=== PATIENT | female | born 1965 | race Caucasian/White ===

== ENCOUNTER 2022-05-18 08:03 | Outpatient (CLI) | payer OTHER, SELFPAY | END 2022-05-18 08:04 | disposition home or self-care (01) | PROVIDERS: PCP Internal Medicine; Visit Provider Internal Medicine | DX: Z00.00 Encounter for general adult medical examination without abnormal findings (principal); I10 Essential (primary) hypertension; Z13.6 Encounter for screening for cardiovascular disorders | CPT/HCPCS: 80053; 80061 ==

== ENCOUNTER 2022-08-22 16:50 | Outpatient (CLI) | payer OTHER, SELFPAY ==
--- OUTSIDE RECORDS SUMMARY | 2022-08-24 08:58 | XMS_ITS | Continuity of Care Document ---
Author Name Unknown Organization Z [facility] Address [address] [place] [address] Phone Care Team Providers Care Advanced Quality Engineer Name Role Phone Unavailable Unavailable Unavailable Allergies, Adverse Reactions, Alerts Substance Reaction Status Criticality BUPROPION HCL Active No Information ibuprofen Active No Information Penicillins Active No Information Medications Medication Instructions Dosage Effective Dates (start - stop) Status Comments COMBIPATCH (unknown strength) Not Available - Active Procedures Procedure Date Office/Outpatient Visit,[facility] 2011 Advance Directives Directive Yes / No Effective Date File Name No Information Encounters Encounter Description Practice Location Reason(s) For Visit Diagnoses Date Provider Providers Copied on Encounter Z [facility], [address] [place], [place] [address]Suite [facility], [place], [address], [place] tel:[phone] [facility] No Information 3 No Information Office/Outpa tient Visit,[facility], [facility], [address] [place], [place] [address], [place], [address], [place] tel:[phone] [facility] [place] URINARY PROBLEMS [facility] 2 Julio Charanjit. [facility] [place], [address], [address], [place], [place], [address], [place]. tel:[phone] Referring Provider: Gabino Dowling, [facility] And [address], [address]. tel:[phone] Family History Family Member Type Diagnosis Age At Onset No Information Payers Payer name Insurance type Covered democrat ID Authoriza tion(s) [facility] [id number] [facility] [id number] Social History Type Description Quantity Date Captured Comments Sex Female Smoking Status No Information Chief Complaint And Reason For Visit No Information Reason For Referral Reason For Referral No Information Plan Of Treatment Date Type Action Status No Information History Of Present Illness Encounter Date Complaint History Of Prese nt Illness No Information Functional Status Date Functional Assessmen t No Information Instructions Date Instruction Additional Infor mation No Information Assessments Type Assessment Date No Information Patient Care Teams Name Effective Dates (start - stop) Status Members No Information
--- OUTSIDE RECORDS SUMMARY | 2022-08-24 08:58 | XMS_ITS | Continuity of Care Document ---
Author Name Unknown Organization [facility] Address [address] [facility] [address] [place] [address] Phone Care Team Providers Care Hemp Fiber Taker Off Name Role Phone Radha Sullivan MD Unavailable Unavailable Allergies, Adverse Reactions, Alerts Substance Reaction Status Criticality ibuprofen Active No Information BUPROPION HCL Active No Information Penicillins Active No Information pregabalin Active No Information Medications Medication Instructions Dosage Effective Dates (start - stop) Status Comments CombiPatch 0.05 mg-0.25 mg/24 hr Transdermal apply 1 patch by transdermal route 2 times every week 1.00 patch - Active oxycodone 30 mg Tab take 1 tablet (30MG) by oral route every 4 - 6 hours 30 MG - Active fentanyl 100 mcg/hr Transderm Patch apply 1 patch (100MCG/H) by transdermal route every 72 hours 100 MCG/H - Active Vitamin D3 2,000 unit Tab take 1 Tablet by Oral route every day 1 Tablet - Active Lyrica 100 mg Cap take 1 capsule (100MG) by oral route 3 times every day 100 MG - No Longer Active Procedures Procedure Date Office/Outpatient Visit, New Advance Directives Directive Yes / No Effective Date File Name Resuscitation Not Answered N/A N/A Life Support Not Answered N/A N/A Intubation Not Answered N/A N/A Antibiotics Not Answered N/A N/A IV Fluid Support Not Answered N/A N/A Tube Feed Not Answered N/A N/A Other Directive N/A N/A WARNING:The information contained in this section is historical and is provided for information only and does not constitute a legal document or any assurance that the information is still accurate. Please verify the information with the solis of the legal document before using it for clinical purposes. Encounters Encounter Description Practice Location Reason(s) For Visit Diagnoses Date Provider Providers Copied on Encounter Office/Outpa tient Visit, [facility], [address], [place], [address], [place] tel:[phone] [facility] , Generic (chief complaint) Pain in joint involving multiple sitesLumbago 3 Nate Garcia. [facility] [address], [place], [address], [place]. tel:[phone] Referring Provider: Radha Sanford, [facility] [address], [place], [address]. tel:[phone] [facility], [address], [place], [address], [place] tel:[phone] [facility] , No Information 3 Nate Garcia. [facility] [address], [place], [address], [place]. tel:[phone] Family History Family Member Type Diagnosis Age At Onset No Information Payers Payer name Insurance type Covered republican ID Authorangeliaa emerita(s) [facility] [id number] Social History Type Description Quantity Date Captured Comments Alcohol Use Details No Caffeine Use Details Unknown Tobacco Use Status No Information Smoking Status Current every day smoker Smoking Tobacco Use Details Cigarette: No Details Available Cigarette: No Details Available Sex Female Vital Signs Date / Time: Height Weight BMI Pulse Rate Blood Pressure Temperature Respiratory Rate Body Surface Area Head Circumference Head Circ. Percentile Wt./Avery. Percentile BMI percentile Pulse Ox Inhaled Ox 9:36 AM 62.00 in 141.00 lbs 25.7 9 kg/m eter (2) 122/74 mm[Hg] 97.40 F Chief Complaint And Reason For Visit From encounter dated '07/05/2012 09:15'. Generic (chief complaint) Reason For Referral Reason For Referral No [...]
== END 2022-08-22 16:51 | disposition home or self-care (01) ==
LOC: NFLDREF 08-24 08:56
PROVIDERS: PCP Internal Medicine; Referring Provider Internal Medicine; Visit Provider Internal Medicine
DX: Z01.818 Encounter for other preprocedural examination (principal); I10 Essential (primary) hypertension
CPT/HCPCS: 80053

== ENCOUNTER 2023-03-28 14:29 | Outpatient (CLI) | payer MEDICAID, SELFPAY | END 2023-03-28 14:30 | disposition home or self-care (01) | PROVIDERS: PCP Internal Medicine; Visit Provider Internal Medicine | DX: Z01.818 Encounter for other preprocedural examination (principal); I10 Essential (primary) hypertension | CPT/HCPCS: 80053; 85610 ==

== ENCOUNTER 2023-10-25 08:05 | Outpatient (CLI) | payer MEDICAID, SELFPAY ==
--- OUTSIDE RECORDS SUMMARY | 2023-10-26 08:38 | XMS_ITS | Clinical Summary ---
Author Organization [employer] [facility] Address [place], [place] [address] Care Team Providers Care Greenhouse Florist Name Role Phone Gabino Dowling MD Primary Care Provider Allergies Active Allergy Reactions Criticality Noted Date Comments Ibuprofen Itching,Flushing 12/15/2005 Pregabalin Edema 11/06/2014 Penicillins Hives 12/15/2005 Bupropion Anxiety,Emotional Disturbance 2005 Medications Medication Sig Dispensed Refills Start Date End Date Status Cholecalciferol, Vitamin D3, (VITAMIN D-3) 5,000 unit tab Take by mouth once daily. 0 11/06/2014 Active aspirin (ECOTRIN) 81 mg enteric coated tablet Take 1 tablet by mouth once daily with a meal. 0 11/06/2014 Active oxyCODONE (ROXICODONE) 30 mg immediate release tablet Take 30 mg by mouth every 4 hours if needed. 05/13/2021 Active morphine CONTROLLED RELEASE (MS Contin) 30 mg CR tablet Take 30 mg by mouth two times daily. Active acetaminophen (TYLENOL EXTRA STRGTH) 500 mg tablet Take 1-2 Tablets (500-1,000 mg) by mouth every 6 hours if needed for Headache, Pain or Temp > (Specify) (1st choice for mild pain, 0-3/10). Max acetaminophen dose: 4000mg in 24 hrs. 0 09/15/2022 Active hydroCHLOROthiazide (HCTZ) 25 mg tablet Take 25 mg by mouth once daily. 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 November 2014: Repeat Lumbar Spine MRI. 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 Cancer Mother Kidney Cancer, removed. Other Mother lazy eye Genetic Other 1 Mom-depression. ~[-] for suicides. Genetic Other 2 Mom-depression. ~[-] for suicides. ~Mom-Lazy eye Relation Name Status Comments Mother Alive Other 1 Other 2 Social History Tobacco Use Types Packs/Day Years Used Date Smoking Tobacco: Former Cigarettes 1 27 1 979 - 2021 Smokeless Tobacco: Current Tobacco Cessation:Ready to Q uit: Not Asked; Counseling Given: Not Answered Comments:ATQ Alcohol Use Standard Drinks/Week Comments Not Currently 0 (1 standard drink = 0.6 oz pur e alcohol) Alcoholic Drinks/day: 0.5 Social Connections Answer Date Recorded Frequency of Communication with Friends and Fami ly 0 06/12/2023 Financial Resource Strain Answer Date R ecorded Difficulty of Paying Living Expenses 3 06/12/2023 Difficulty of Paying Living Expenses Not on file 06/12/2023 Food Insecurity Answer Date Recorded Worried About Running Out of Food in the Last Ye ar 1 06/12/2023 Transportation Needs Answer Date Record ed Lack of Transportation (Medical) 1 06/12/2023 Housing Stability Answer Date Recorded Unable to Pay for Housing in the Last Year 1 06/12/2023 Sex and Gender Information Value Date Recorded Sex Assigned at Not on file Gender Identity Not on file Sexual Orientation Not on file Obstetrics History Last Filed Vital Signs Vital Sign Reading Time Taken Comments Blood Pressure 153/79 06/12/2023 8:23 AM CDT Pulse 77 06/12/2023 8:21 AM CDT Temperature 36.8 ??C (98.2 ??F) 06/12/2023 8:21 AM CD T Respiratory Rate 14 06/12/2023 8:21 AM CDT Oxygen Saturation 100% 06/12/2023 8:21 AM CDT Inhaled Oxygen Concentration - - Weight 59 kg (130 lb) 04/03/2023 7:30 AM CONVICT GUARD Height 157.5 cm (5' 2) 04/03/2023 7:30 AM CONVICT GUARD Body Mass Index 23.78 04/03/2023 7:30 AM CONVICT GUARD Plan of Treatment Upcoming Encounters Date Type Department Care Team (Late st Contact Info) Description 11/14/2023 1:00 PM CDT Ancillary Procedure [facility] [address] [place] [address] Health Maintenance Due Date Last Done Comments Tdap 1975 Depression screening for age 12+ 1976 HIV for age 15-65 1979 Hepatitis C screening for age 18-79 1982 Tetanus booster 02/06/2006 02/07/1996 Pap test for age 21-65 01/08/2008 01/07/2005, 2001 Colonoscopy through age 75 2009 Lipids for age 45-75 2009 Mammogram for age 45-75 2009 Zoster (shingles) series for age 50+ (1 of 2) 2014 BMI (ht and wt on same day) for age 18+ 02/09/2018 02/09/2017 Influenza for age 50-64 10/08/2023 COVID-19 vaccine series Completed 11/16/19 23, 02/03/2021, 02/20/2020, Additional history exists Pneumococcal series for age 6-64 Aged Out No longer eligible based on patient's age to complete this topic Procedures Procedure Name Priority Date/Time Associated Diagnosis Comments MR ANGIO HEAD BRAIN WWO Routine 09/27/2023 10:40 AM CDT Cerebral aneurysm GYNECOLOGICAL PANEL Timed 01/07/2005 1 2:00 PM CONVICT GUARD from Last 3 Months or Most Recently Relevant to Health Maintenance Results * MR Angio Head w/wo Contrast (09/27/2023 10:40 AM CDT) Anatomical Region Laterality Modality HEAD, BRAIN Magnetic Resonan ce 09/27/2023 7:18 PM CDT Impressions 09/27/2023 7:18 PM CDT 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 A follow-up MRA of the head will be obtained in September 2024, 2 years after treatment. Dictated by Luis Alberto Wahl MD @ 09/27/2023 7:18:58 PM (Electronically Signed) Narrative 09/27/2023 7:18 PM CDT For Patients: ??As a result of the Cures Act, medical imaging exams and procedure reports are released immediately into your electronic medical record. ??You may view this report before your referring provider. ??If you have questions, please contact your health care provider. CLINICAL HISTORY: Patient with cerebral aneurysm. TECHNIQUE: 3D TOF MRA and post-contrast MRA of the head was performed. 3D MIP reformats were performed at an independent workstation. COMPARISON: Cerebral angiogram dated 04/03/2023 FINDINGS: There is continued complete occlusion of the previously WEBed left anterior choroidal artery and previously coiled left A1 TAMEKA aneurysms. There are no new aneurysms. The rest of the intracranial vasculature is unremarkable. Procedure Note Luis Alberto Wahl MD - 09/27/2023 For Patients: As a result of the Cures Act, medical imagingexams and procedure reports are released immediately into your electronicmedical record. You may view this report before your referring provider.If you have questions, please contact your health care provider. CLINICAL HISTORY: Patient with cerebral aneurysm. TECHNIQUE: 3D TOF MRA and post-contrast MRA of the head was performed. 3D MIPreformats were performed at an independent workstation. COMPARISON: Cerebral angiogram dated 04/03/2023 FINDINGS: There is continued complete occlusion of the previously WEBed leftanterior choroidal artery and previously coiled left A1 TAMEKA aneurysms. There are no new aneurysms. The rest of the intracranial vasculature is unremarkable. IMPRESSION: Complete occlusion of the previously embolized left anterior choroidalartery and left A1 TAMEKA aneurysms. A follow-up MRA of the head will be obtained in September 2024, 2 years aftertreatment. Dictated by Luis Alberto Wahl MD @ 09/27/2023 7:18:58 PM (Electronically Signed) Payton Manzanares MD MR * GYNECOLOGICAL PANEL (01/07/2005 12:00 PM CONVICT GUARD) Pathologist [facility] CYTOLOGY ??CYTOPATHOLOGY REPORT ??[facility] ??[facility] [address] [place] [address] ? Status: Final Report ?[id number] ?? CLINICAL INFORMATION ?Reason for Visit ?: Routine ?LMP ? : 12-24-04 ?Previous PAP Test ? : Yes ?Previous PAP Date ? : 1999 ?Previous PAP Dx ? : Negative ?Previous Colposcopy/Bx: Not specified ?Hormone Usage ? : Not given ?Additional Data ? : Appearance of Cervix : BENIGN ?HPV Request ? : Reflex HPV test if PAP Dx ASCUS ?? SPECIMEN SOURCE ?: Cervical/vaginal thin, screening ?? SPECIMEN ADEQUACY ?: Satisfactory for evaluation Endocervical ?component present. ?? * ?? INTERPRETATION/RES ULT: ?Negative for intraepithelial lesion or malignancy. ?Organisms ?Shift in june suggestive of bacterial vaginosis ?? * ?? Cytology 1st Screener : ??nwk ?? Signed by: ? nwk ?? NOTE: The Pap test is a screening technique, not a diagnostic ?? procedure. It is used primarily to screen for squamous cancers and ?? precursor lesions. Published studies have shown that it is subject to ?? both false negative and false positive results. The pap test should ?? not be used as the sole means to diagnose or exclude pre-malignant and ?? malignant lesions. ?? COLLECTED: 01/07/05 ?? ACCESSIONED: 01/10/05 ?? SIGNED: 01/13/05 [facility] 01/07/2005 12:0 0 PM CONVICT GUARD 01/10/2005 8:37 AM CONVICT GUARD Sabrina Murphy MD PATHOLOGY/CYTOLO GY [facility] [place]NAL ZIP [address] [address] from Last 3 Months or Most Recently Relevant to Health Maintenance Advance Directives * Full Code (Latest Code Status on File) Date Activated Date Inactivated Comments 04/03/2023 7:00 AM 04/04/2023 2:13 AM Question Answer Comments Code Status Discussion: Reviewed Preferences * Full Code Date Activated Date Inactivated Comments 04/03/2023 7:00 AM 04/03/2023 7:00 AM For procedur al use only. Code status to be discussed at time of informed consent. Question Answer Comments Code Status Discussion: Other (specify in commen ts): * Full Code Date Activated Date Inactivated Comments 04/03/2023 7:00 AM 04/03/2023 7:00 AM Question Answer Comments Code Status Discussion: Reviewed Preferences * Full Code Date Activated Date Inactivated Comments 09/15/2022 3:15 PM 09/16/2022 5:22 PM Question Answer Comments Code Status Discussion: Reviewed Preferences Care Teams Greenhouse Florist Relationship Specialty Start Date End Date Gabino Dowling MD [address] [place] [address] PCP - General 11/10/14
--- OUTSIDE RECORDS SUMMARY | 2023-10-26 08:38 | XMS_ITS | Referral Summary ---
Author Organization [facility] Address [address] [place] [address]. [place] [address] Care Team Providers Care Fitter Type Bar And Segment Name Role Phone Gabino Dowling MD Primary Care Provider Social History Tobacco Use Types Packs/Day Years Used Date Smoking Tobacco: Never Assessed Sex and Gender Information Value Date Recorded Sex Assigned at Not on file Gender Identity Not on file Sexual Orientation Not on file Plan of Treatment Not on file Care Teams Fitter Type Bar And Segment Relationship Specialty Start Date End Date Gabino Dowling MD [facility] [address] [place] [address] PCP - General 01/27/12
--- OUTSIDE RECORDS SUMMARY | 2023-10-26 08:38 | XMS_ITS | Continuity of Care Document ---
Author Organization Z [facility] [place] Address [address] [place] [address] Phone Care Team Providers Care Manager Product Design Name Role Phone Unavailable Unavailable Unavailable Allergies, Adverse Reactions, Alerts Substance Reaction Status Criticality BUPROPION HCL Active No Information ibuprofen Active No Information Penicillins Active No Information Medications Medication Instructions Dosage Effective Dates (start - stop) Status Comments COMBIPATCH (unknown strength) Not Available - Active Procedures Procedure Date Office/Outpatient Visit,[facility] 2011 Advance Directives Directive Yes / No Effective Date File Name No Information Encounters Encounter Description Practice Location Reason(s) For Visit Diagnoses Date Provider Providers Copied on Encounter Z [facility], [address] [place] [address], [place], [address], [place] tel:[phone] [facility] No Information 3 No Information Office/Outpa tient Visit,[facility] Z [facility], [address] [place], [place] [address], [address], [place] tel:[phone] [facility] [place] URINARY PROBLEMS [facility] 2 Julio Charanjit. [facility], [address], [address], [place], [place], [address], [place]. tel:[phone] [facility] And [address], [address]. tel:[phone] Family History Family Member Type Diagnosis Age At Onset No Information Payers Payer name Insurance type Covered libertarian ID Authoriza tion(s) [facility] [id number] [facility] [id number] Social History Type Description Quantity Date Captured Comments Sex Female Smoking Status No Information Chief Complaint And Reason For Visit No Information Reason For Referral Reason For Referral No Information History Of Present Illness Encounter Date Complaint History Of Prese nt Illness No Information Functional Status Date Functional Assessmen t No Information Instructions Date Instruction Additional Infor mation No Information Assessments Type Assessment Date No Information Patient Care Teams Name Effective Dates (start - stop) Status Members No Information
--- OUTSIDE RECORDS SUMMARY | 2023-10-26 08:38 | XMS_ITS | Clinical Summary ---
Author Organization [place] Address [address] [place] [address]. [place] [address] Care Team Providers Care Linotype Operator Name Role Phone Gabino Dowling MD Primary Care Provider Social History Tobacco Use Types Packs/Day Years Used Date Smoking Tobacco: Never Assessed Sex and Gender Information Value Date Recorded Sex Assigned at Not on file Gender Identity Not on file Sexual Orientation Not on file Plan of Treatment Not on file Care Teams Linotype Operator Relationship Specialty Start Date End Date Gabino Dowling MD [facility] [address] [place] [address] PCP - General 01/27/12
--- OUTSIDE RECORDS SUMMARY | 2023-10-26 08:38 | XMS_ITS | Continuity of Care Document ---
Author Organization [facility] Address [address] [facility] [address] [place] [address] Phone Care Team Providers Care Transportation Operations Manager Name Role Phone Radha Sullivan MD Unavailable [...] [facility], [address], [place], [address], [place] tel:[phone] [facility] , Generic (chief complaint) Pain in joint involving multiple sitesLumbago 0 3 Nate Radha. [facility] [address], [place], [address], [place]. tel:[phone] Referring Provider: Radha Sanford, [facility] [address], [place], [address]. tel:[phone] [facility], [address], [place], [address], [place] tel:[phone] [facility] , No Information 3 Nate Garcia. [facility] [address], [place], [address], [place]. tel:[phone] Family History Family Member Type Diagnosis Age At Onset No Information Payers Payer name Insurance type Covered republican ID Authorangeliaa emeriat(s) [facility] [id number] Social History Type Description Quantity Date Captured [...]
== END 2023-10-25 08:06 | disposition home or self-care (01) ==
PROVIDERS: PCP Internal Medicine; Referring Provider Internal Medicine; Visit Provider Internal Medicine
DX: N39.0 Urinary tract infection, site not specified (principal)
CPT/HCPCS: 87086

== ENCOUNTER 2023-11-01 09:43 | Outpatient (CLI) | payer MEDICAID, SELFPAY ==
--- OUTSIDE RECORDS SUMMARY | 2023-11-01 09:51 | XMS_ITS | Clinical Summary ---
Author Organization [facility] Address [place], [place] [address] Care Team Providers Care Casino Accountant Name Role Phone Gabino Dowling MD Primary Care Provider [phone] Allergies Active Allergy Reactions Criticality Noted Date [...] - 09/27/2023 11:59 PM CDT Hospital Encounter [facility] [address] [place] [address] Payton Manzanares MD Cerebral aneurysm 09/27/2023 Travel [...] 59 kg (130 lb) 04/03/2023 7:30 AM SHELF DRIER OPERATOR Height 157.5 cm (5' 2) 04/03/2023 7:30 AM SHELF DRIER OPERATOR Body Mass Index 23.78 04/03/2023 7:30 AM SHELF DRIER OPERATOR Plan of Treatment Upcoming Encounters Date Type Department Care Team (Late st Contact Info) Description 11/14/2023 1:00 PM CDT Ancillary Procedure [place] [facility] [place] at [facility] [address] [place] [address] Health Maintenance Due Date Last Done Comments [...] same day) for age 18+ 02/09/2018 02/09/2017 COVID-19 vaccine series ( season) 2023 11/15/2022, 02/03/2021, 02/20/2020, Additional history exists Influenza for age 50-64 10/08/2023 Pneumococcal series for age 6-64 Aged Out No longer eligible based on patient's age to complete this topic Procedures Procedure Name Priority Date/Time Associated Diagnosis Comments MR ANGIO HEAD BRAIN WWO Routine 09/27/2023 10:40 AM CDT Cerebral aneurysm GYNECOLOGICAL PANEL Timed 01/07/2005 1 2:00 PM SHELF DRIER OPERATOR from Last 3 Months or Most Recently [...] For Patients: As a result of the 21st Century Cures Act, medical imagingexams and procedure reports [...] MR * GYNECOLOGICAL PANEL (01/07/2005 12:00 PM SHELF DRIER OPERATOR) CYTOLOGY ??CYTOPATHOLOGY REPORT ??[facility] ??[facility] [address] [place] [address] ? Status: Final Report ?[id number] ?? CLINICAL INFORMATION ?Reason for Visit ?: [...] intraepithelial lesion or malignancy. ?Organisms ?Shift in juen suggestive of bacterial vaginosis ?? * ?? [...] 01/07/05 ?? ACCESSIONED: 01/10/05 ?? SIGNED: 01/13/05 [facility] 01/07/2005 12:0 0 PM SHELF DRIER OPERATOR 01/10/2005 8:37 AM SHELF DRIER OPERATOR Sabrina Murphy MD PATHOLOGY/CYTOLO GY [facility] INTERNAL ZIP [phone] [address] from Last 3 Months or Most Recently [...] Code Status Discussion: Reviewed Preferences Care Teams Casino Accountant Relationship Specialty Start Date End Date Gabino Dowling MD [address] [place] [address] PCP - General 11/10/14
--- OUTSIDE RECORDS SUMMARY | 2023-11-01 09:51 | XMS_ITS | Continuity of Care Document ---
Author Organization [facility] Address [address] [place] [address] Phone Care Team Providers Care Sales Representative Adding Machines Name Role Phone Unavailable Unavailable Unavailable Allergies, Adverse Reactions, Alerts Substance Reaction Status Criticality BUPROPION HCL Active No Information ibuprofen Active No Information Penicillins Active No Information Medications Medication Instructions Dosage Effective Dates (start - stop) Status Comments COMBIPATCH (unknown strength) Not Available - Active Procedures Procedure Date Office/Outpatient Visit,[facility] 2011 Advance Directives Directive Yes / No Effective Date File Name No Information Encounters Encounter Description Practice Location Reason(s) For Visit Diagnoses Date Provider Providers Copied on Encounter Z [facility], [address] [place] [address], [place], [address], [place] tel:[phone] [facility] No Information 3 No Information Office/Outpa tient Visit,[facility], [facility], [address] [place], [place] [address], [place], [address], [place] tel:[phone] [facility] URINARY PROBLEMS [facility] 2 Julio Charanjit. [facility], [address], [address], [place], [place], [address], [place]. tel:[phone] Referring Provider: [facility] [address], [address]. tel:[phone] Family History Family Member Type Diagnosis Age At Onset No Information Payers Payer name Insurance type Covered libertarian ID Authoriza tion(s) [facility] [id number] [facility] [id number] Social History Type Description Quantity Date Captured [...]
--- OUTSIDE RECORDS SUMMARY | 2023-11-01 09:51 | XMS_ITS | Referral Summary ---
Author Organization [place] Address [address] [place] [address]. [place] [address] Care Team Providers Care Paraprofessional Aide Teacher Name Role Phone Gabino Dowling MD Primary Care Provider Social History Tobacco Use Types Packs/Day Years Used Date Smoking Tobacco: Never Assessed Sex and Gender Information Value Date Recorded Sex Assigned at Not on file Gender Identity Not on file Sexual Orientation Not on file Plan of Treatment Not on file Care Teams Paraprofessional Aide Teacher Relationship Specialty Start Date End Date Gabino Dowling MD [facility] [address] [place] [address] PCP - General 01/27/12
--- OUTSIDE RECORDS SUMMARY | 2023-11-01 09:51 | XMS_ITS | Continuity of Care Document ---
Author Organization [facility] Address [address] [facility] [address] [place] [address] Phone Care Team Providers Care County Auditor Name Role Phone Radha Sullivan MD Unavailable [...] [facility], [address], [place], [address], [place] tel:[phone] [facility] , Generic (chief complaint) Pain in joint involving multiple sitesLumbago 0 3 Nate Radha. [facility] [address], [place], [address], [place]. tel:[phone] Referring Provider: Radha Sanford, [facility] [address], [place], [address]. tel:[phone] [facility], [address], [place], [address], [place] tel:[phone] [facility] , No Information 3 Nate Garcia. [facility] [address], [place], [address], [place]. tel:[phone] Family History Family Member Type Diagnosis Age At Onset No Information Payers Payer name Insurance type Covered constitution party ID Authorangeliaa emerita(s) [facility] [id number] Social History Type Description Quantity Date Captured [...]
--- OUTSIDE RECORDS SUMMARY | 2023-11-01 09:51 | XMS_ITS | Clinical Summary ---
Author Organization [place] Address [address] [place] [address]. [place] [address] Care Team Providers Care Test Puller Name Role Phone Gabino Dowling MD Primary Care Provider Social History Tobacco Use Types Packs/Day Years Used Date Smoking Tobacco: Never Assessed Sex and Gender Information Value Date Recorded Sex Assigned at Not on file Gender Identity Not on file Sexual Orientation Not on file Plan of Treatment Not on file Care Teams Test Puller Relationship Specialty Start Date End Date Gabino Dowling MD [facility] [address] [place] [address] PCP - General 01/27/12
== END 2023-11-01 09:44 | disposition home or self-care (01) ==
LOC: NFLDREF 09:45
PROVIDERS: PCP Internal Medicine; Visit Provider Internal Medicine
DX: R10.9 Unspecified abdominal pain (principal)
CPT/HCPCS: 80053; 87086

== ENCOUNTER 2023-11-09 10:23 | Outpatient (CLI) | payer MEDICAID, SELFPAY ==
--- OUTSIDE RECORDS SUMMARY | 2023-11-09 10:25 | XMS_ITS | Continuity of Care Document ---
Author Organization [facility] Address [address] [facility] [address] [place] [address] Phone Care Team Providers Care Flexo Press Operator Name Role Phone Radha Sullivan MD Unavailable [...] [facility], [address], [place], [address], [place] tel:[phone] [facility] , Generic (chief complaint) Pain in joint involving multiple sitesLumbago 0 3 Nate Radha. [facility] [address], [place], [address], [place]. tel:[phone] Referring Provider: Radha Sanford, [facility] [address], [place], [address]. tel:[phone] [facility], [address], [place], [address], [place] tel:[phone] [facility] , No Information 3 Nate Garcia. [facility] [address], [place], [address], [place]. tel:[phone] Family History Family Member Type Diagnosis Age At Onset No Information Payers Payer name Insurance type Covered democrat ID Authorangeliaa emerita(s) [facility] [id number] Social History Type Description Quantity Date Captured [...]
--- OUTSIDE RECORDS SUMMARY | 2023-11-09 10:25 | XMS_ITS | Continuity of Care Document ---
Author Organization Z [facility] Address [address] [place] [address] Phone Care Team Providers Care Sales And Marketing Coordinator Name Role Phone Unavailable Unavailable Unavailable Allergies, Adverse Reactions, Alerts Substance Reaction Status Criticality BUPROPION HCL Active No Information ibuprofen Active No Information Penicillins Active No Information Medications Medication Instructions Dosage Effective Dates (start - stop) Status Comments COMBIPATCH (unknown strength) Not Available - Active Procedures Procedure Date Office/Outpatient Visit,[facility] 2011 Advance Directives Directive Yes / No Effective Date File Name No Information Encounters Encounter Description Practice Location Reason(s) For Visit Diagnoses Date Provider Providers Copied on Encounter Z [facility], [address] [place] [address], [place], [address], [place] tel:[phone] [facility] No Information 3 No Information Office/Outpa tient Visit,[facility], [address] [place], [place] [address], [address], [place] tel:[phone] [facility] [place] URINARY PROBLEMS [facility] 2 Julio Charanjit. [facility], [address], [address], [place], [place], [address], [place]. tel:[phone] Referring [facility]: [facility] [address], [address]. tel:[phone] Family History Family Member Type Diagnosis Age At Onset No Information Payers Payer name Insurance type Covered constitution party ID Authoriza tion(s) [facility] [id number] [facility] [id number] Social History Type Description Quantity Date Captured [...]
--- OUTSIDE RECORDS SUMMARY | 2023-11-09 10:25 | XMS_ITS | Clinical Summary ---
Author Organization [place] Address [address] [place] [address]. [place] [address] Care Team Providers Care Feed Research Technician Name Role Phone Gabino Dowling MD Primary Care Provider Social History Tobacco Use Types Packs/Day Years Used Date Smoking Tobacco: Never Assessed Sex and Gender Information Value Date Recorded Sex Assigned at Not on file Gender Identity Not on file Sexual Orientation Not on file Plan of Treatment Not on file Care Teams Feed Research Technician Relationship Specialty Start Date End Date Gabino Dowling MD [facility] [address] [place] [address] PCP - General 01/27/12
--- OUTSIDE RECORDS SUMMARY | 2023-11-09 10:25 | XMS_ITS | Referral Summary ---
Author Organization [place] Address [address] [place] [address]. [place] [address] Care Team Providers Care S[employer] Name Role Phone Gabino Dowling MD Primary Care Provider Social History Tobacco Use Types Packs/Day Years Used Date Smoking Tobacco: Never Assessed Sex and Gender Information Value Date Recorded Sex Assigned at Not on file Gender Identity Not on file Sexual Orientation Not on file Plan of Treatment Not on file Care Teams [employer] Relationship Specialty Start Date End Date Gabino Dowling MD [facility] [address] [place] [address] PCP - General 01/27/12
--- OUTSIDE RECORDS SUMMARY | 2023-11-09 10:25 | XMS_ITS | Clinical Summary ---
Author Organization [facility] [place] [address] Care Team Providers Care Stone Derrickman And Rigger Name Role Phone Gabino Dowling MD Primary [...] - 09/27/2023 11:59 PM CDT Hospital Encounter [facility] [address] [place] [address] Payton Manzanares MD Cerebral aneurysm 09/27/2023 Travel [...] 59 kg (130 lb) 04/03/2023 7:30 AM TRACTOR SWEEPER DRIVER Height 157.5 cm (5' 2) 04/03/2023 7:30 AM TRACTOR SWEEPER DRIVER Body Mass Index 23.78 04/03/2023 7:30 AM TRACTOR SWEEPER DRIVER Plan of Treatment Upcoming Encounters Date Type Department Care Team (Late st Contact Info) Description 11/14/2023 1:00 PM CDT Ancillary Procedure [place] [facility] [place] [facility] [address] [place] [address] Health Maintenance Due Date Last Done Comments [...] GYNECOLOGICAL PANEL Timed 01/07/2005 1 2:00 PM TRACTOR SWEEPER DRIVER from Last 3 Months or Most Recently [...] MR * GYNECOLOGICAL PANEL (01/07/2005 12:00 PM TRACTOR SWEEPER DRIVER) CYTOLOGY ??CYTOPATHOLOGY REPORT ??[place] ??[facility] [address] [place] [address] ? Status: Final Report ?[id number] ?? CLINICAL INFORMATION ?Reason for Visit ?: [...] 01/07/05 ?? ACCESSIONED: 01/10/05 ?? SIGNED: 01/13/05 [facility] 01/07/2005 12:0 0 PM TRACTOR SWEEPER DRIVER 01/10/2005 8:37 AM TRACTOR SWEEPER DRIVER Sabrina Murphy MD PATHOLOGY/CYTOLO GY [facility] INTERNAL ZIP [phone] [address] from Last 3 Months or Most Recently [...] Code Status Discussion: Reviewed Preferences Care Teams Stone Derrickman And Rigger Relationship Specialty Start Date End Date Gabino Dowling MD [address] [place] [address] PCP - General 11/10/14
--- NOTE | 2023-11-09 11:00 | CRLHL7_ITS ---
For Patients: As a result of the Century Cures Act, medical imaging exams and procedure reports are released immediately into your electronic medical record. You may view this report before your referring provider. If you have questions, please contact your health care provider. INDICATION: Right lower quadrant pain, recent urinary tract infection TECHNIQUE: Axial images were obtained from the diaphragm to the pubic symphysis. Reformats were obtained in the coronal and sagittal plane. IV Contrast: 58 cc Isovue 370 Oral Contrast: None COMPARISON: Abdomen and pelvis CT 12/05/2011 FINDINGS: Lower chest: Unremarkable. Liver: Unremarkable. Normal in size and attenuation. No masses. Gallbladder and bile ducts: Unremarkable. No stones or inflammation. No biliary dilatation. Spleen: Multiple calcifications within the spleen consistent with old granulomatous disease. Pancreas: Unremarkable. No mass or inflammation. Adrenal glands: Unremarkable. No nodules. Kidneys: Symmetric renal enhancement without hydronephrosis. Vasculature: Atherosclerosis without abdominal aortic aneurysm. GI tract: The stomach is unremarkable. No dilated loops of large or small intestine. Large amount of stool within the colon. Normal appendix. Pelvis: Bladder unremarkable. No adnexal mass. Bones: Mild degenerative disc disease thoracolumbar spine. IMPRESSION: 1. No dilated bowel or localized inflammation. Normal appendix. Large amount of stool noted within the colon. 2. Old granulomatous disease. Please note that all CT scans at this facility use dose modulation, iterative reconstruction, and/or weight-based dosing when appropriate to reduce radiation dose to as low as reasonably achievable. Dictated by Korey Joseph MD @ 11/09/2023 1:27:19 PM (Electronically Signed)
== END 2023-11-09 10:24 | disposition home or self-care (01) ==
LOC: CT 10:24
PROVIDERS: PCP Internal Medicine; Visit Provider Internal Medicine
DX: R10.31 Right lower quadrant pain (principal)
CPT/HCPCS: 74177; Q9967

== ENCOUNTER 2023-11-14 12:20 | Outpatient (CLI) | payer MEDICAID, SELFPAY ==
--- OUTSIDE RECORDS SUMMARY | 2023-11-14 12:22 | XMS_ITS | Clinical Summary ---
Author Organization [facility] Address [place], [place] [address] Care Team Providers Care Hide Measuring Machine Operator Name Role Phone Gabino Dowling MD [...] - 09/27/2023 11:59 PM CDT Hospital Encounter [facility] [address] [place] [address] Payton Manzanares MD Cerebral aneurysm 09/27/2023 Travel [...] 59 kg (130 lb) 04/03/2023 7:30 AM VISUAL MERCHANDISING DIRECTOR Height 157.5 cm (5' 2) 04/03/2023 7:30 AM VISUAL MERCHANDISING DIRECTOR Body Mass Index 23.78 04/03/2023 7:30 AM VISUAL MERCHANDISING DIRECTOR Plan of Treatment Upcoming Encounters Date Type Department Care Team (Late st Contact Info) Description 11/14/2023 1:00 PM CDT Ancillary Procedure [place] [facility] [place] [facility] [address] [place] [address] Health Maintenance Due Date Last Done Comments [...] GYNECOLOGICAL PANEL Timed 01/07/2005 1 2:00 PM VISUAL MERCHANDISING DIRECTOR from Last 3 Months or Most Recently [...] MR * GYNECOLOGICAL PANEL (01/07/2005 12:00 PM VISUAL MERCHANDISING DIRECTOR) CYTOLOGY ??CYTOPATHOLOGY REPORT ??[facility] ??[facility] [address] [place] [address] ? Status: Final Report ?[id number] ?? CLINICAL INFORMATION ?Reason for Visit ?: [...] 01/07/05 ?? ACCESSIONED: 01/10/05 ?? SIGNED: 01/13/05 [facility] 01/07/2005 12:0 0 PM VISUAL MERCHANDISING DIRECTOR 01/10/2005 8:37 AM VISUAL MERCHANDISING DIRECTOR Sabrina Murphy MD PATHOLOGY/CYTOLO GY [facility] INTERNAL ZIP [address] [address] from Last 3 Months or Most Recently [...] Code Status Discussion: Reviewed Preferences Care Teams Hide Measuring Machine Operator Relationship Specialty Start Date End Date Gabino Dowling MD [address] [place] [address] PCP - General 11/10/14
--- OUTSIDE RECORDS SUMMARY | 2023-11-14 12:22 | XMS_ITS | Referral Summary ---
Author Organization [place] Address [address] [place] [address]. [place] [address] Care Team Providers Care Data Security Analyst Name Role Phone Gabino Dowling MD Primary Care Provider Social History Tobacco Use Types Packs/Day Years Used Date Smoking Tobacco: Never Assessed Sex and Gender Information Value Date Recorded Sex Assigned at Not on file Gender Identity Not on file Sexual Orientation Not on file Plan of Treatment Not on file Care Teams Data Security Analyst Relationship Specialty Start Date End Date Gabino Dowling MD [facility] [address] [place] [address] PCP - General 01/27/12
--- OUTSIDE RECORDS SUMMARY | 2023-11-14 12:22 | XMS_ITS | Continuity of Care Document ---
Author Organization [facility] Address [address] [place] [address] Phone Care Team Providers Care Wet Machine Cutter Name Role Phone Unavailable Unavailable Unavailable Allergies, Adverse Reactions, Alerts Substance Reaction Status Criticality BUPROPION HCL Active No Information ibuprofen Active No Information Penicillins Active No Information Medications Medication Instructions Dosage Effective Dates (start - stop) Status Comments COMBIPATCH (unknown strength) Not Available - Active Procedures Procedure Date Office/Outpatient Visit,[facility] 2011 Advance Directives Directive Yes / No Effective Date File Name No Information Encounters Encounter Description Practice Location Reason(s) For Visit Diagnoses Date Provider Providers Copied on Encounter Z [facility], [address] [place] [address], [place], [address], [place] tel:[phone] [facility] No Information 3 No Information Office/Outpa tient Visit,[facility], [address] [place], [place] [address], [place], [address], [place] tel:[phone] [facility] [place] URINARY PROBLEMS [facility] 2 Julio Charanjit. [facility], [address], [address], [place], [place], [address], [place]. tel:[phone] Referring Provider: [facility] [address], [address]. tel:[phone] Family History Family Member Type Diagnosis Age At Onset No Information Payers Payer name Insurance type Covered democrat ID Authoriza tion(s) [facility] [id number] [facility] [id number] Social History Type Description Quantity Date Captured [...]
--- OUTSIDE RECORDS SUMMARY | 2023-11-14 12:22 | XMS_ITS | Continuity of Care Document ---
Author Organization [facility] Address [address] [facility] [address] [place] [address] Phone Care Team Providers Care Wood Tool Maker Name Role Phone Radha Sullivan MD Unavailable [...] [facility], [address], [place], [address], [place] tel:[phone] [facility] , Generic (chief complaint) Pain in joint involving multiple sitesLumbago 0 3 Nate Radha. [facility] [address], [place], [address], [place]. tel:[phone] Referring Provider: Radha Sanford, [facility] [address], [place], [address]. tel:[phone] [facility], [address], [place], [address], [place] tel:[phone] [facility] , No Information 3 Nate Garcia. [facility] [address], [place], [address], [place]. tel:[phone] Family History Family Member Type Diagnosis Age At Onset No Information Payers Payer name Insurance type Covered libertarian ID Authorangeliaa emerita(s) [facility] [id number] Social History Type Description Quantity Date Captured [...]
--- OUTSIDE RECORDS SUMMARY | 2023-11-14 12:22 | XMS_ITS | Clinical Summary ---
Author Organization [place] Address [address] [place] [address]. [place] [address] Care Team Providers Care Property Underwriter Name Role Phone Gabino Dowling MD Primary Care Provider Social History Tobacco Use Types Packs/Day Years Used Date Smoking Tobacco: Never Assessed Sex and Gender Information Value Date Recorded Sex Assigned at Not on file Gender Identity Not on file Sexual Orientation Not on file Plan of Treatment Not on file Care Teams Property Underwriter Relationship Specialty Start Date End Date Gabino Dowling MD [facility] [address] [place] [address] PCP - General 01/27/12
[2023-11-14 14:17] VITALS: BP 153/99; PULSE 103
--- NOTE | 2023-11-14 14:45 | W.PM.STED ---
Stress Test Note Date Date Seen: 11/14/23 Date of test: 11/14/23 Providers Primary care provider: Gabino Dowling Stress test physician: Andrea Augustin Stress Test Note Stress test ordered: Stress Echo Indication for test: Chest pain Results discussion: Patient is seen for the above test after discussion the risks benefits and side effects she would like to proceed pretest EKG shows normal sinus rhythm, with a ventricular rate of 81, and a blood pressure 176/109. No acute ST wave changes are noted. Standard Marcin protocol is employed over a time course of 9 minutes 19 seconds, she achieved a metabolic equivalent of 10.7 Mets, test is terminated because of shortness of breath, her maximum heart rate was 148, which is 108% of the maximum. Maximum blood pressure was 190/90. There was some ST wave changes of depression noted laterally, these are somewhat indeterminate, and did fulfill the criteria of positive test. She did recover normally, condition was felt to be good. She was subjectively positive with shortness of breath. Impression: Negative electrographic tracing of stress echo, subjectively positive with shortness of breath, Follow up suggested: Await echo images these will be reviewed by Cardiology clinical correlation with these will be needed. If positive further workup with the nuclear test may be needed. Other possibilities include a more of a pulmonary component to this, and possible PFTs may be helpful. Patient left this testing facility in good condition,
== END 2023-11-14 12:21 | disposition home or self-care (01) ==
LOC: STRESS 12:20
PROVIDERS: PCP Internal Medicine; Visit Provider Internal Medicine
DX: R07.9 Chest pain, unspecified (principal)
CPT/HCPCS: 93016; 93325; 93351

== ENCOUNTER 2023-11-16 09:04 | Outpatient (CLI) | payer MEDICAID, SELFPAY ==
--- OUTSIDE RECORDS SUMMARY | 2023-11-16 09:06 | XMS_ITS | Continuity of Care Document ---
Author Organization Z [facility] Address [address] [place] [address] Phone Care Team Providers Care Immigration Lawyer Name Role Phone Unavailable Unavailable Unavailable Allergies, [...] Date Provider Providers Copied on Encounter Z [facility], [address] [place] [address], [place], [address], [place] tel:[phone] [facility] No Information 3 No Information Office/Outpa tient Visit,[facility], [facility] Z [facility], [address], [place] [address], [address], [place] tel:[phone] [facility] URINARY PROBLEMS [facility] 2 Julio Charanjit. [facility], [address], [address], [place], [place], [address], [place]. tel:[phone] Ref[facility]: [facility] [address], [address]. tel:[phone] Family History Family Member Type Diagnosis Age At Onset No Information Payers Payer name Insurance type Covered republican ID Authoriza tion(s) [facility] [id number] [facility] [id number] Social History Type Description Quantity Date Captured [...]
--- OUTSIDE RECORDS SUMMARY | 2023-11-16 09:06 | XMS_ITS | Clinical Summary ---
Author Organization [facility] Address [address] [place] [address]. [place] [address] Care Team Providers Care Customer Care Consultant Name Role Phone Gabino Dowling MD Primary Care Provider Social History Tobacco Use Types Packs/Day Years Used Date Smoking Tobacco: Never Assessed Sex and Gender Information Value Date Recorded Sex Assigned at Not on file Gender Identity Not on file Sexual Orientation Not on file Plan of Treatment Not on file Care Teams Customer Care Consultant Relationship Specialty Start Date End Date Gabino Dowling MD [facility] [address] [place] [address] PCP - General 01/27/12
--- OUTSIDE RECORDS SUMMARY | 2023-11-16 09:06 | XMS_ITS | Referral Summary ---
Author Organization [facility] Address [address] [place] [address]. [place] [address] Care Team Providers Care Harness Cutter Name Role Phone Gabino Dowling MD Primary Care Provider Social History Tobacco Use Types Packs/Day Years Used Date Smoking Tobacco: Never Assessed Sex and Gender Information Value Date Recorded Sex Assigned at Not on file Gender Identity Not on file Sexual Orientation Not on file Plan of Treatment Not on file Care Teams Harness Cutter Relationship Specialty Start Date End Date Gabino Dowling MD [facility] [address] [place] [address] PCP - General 01/27/12
--- OUTSIDE RECORDS SUMMARY | 2023-11-16 09:06 | XMS_ITS | Continuity of Care Document ---
Author Organization [facility] Address [address] [facility] [address] [place] [address] Phone Care Team Providers Care Fiberglass Ski Maker Name Role Phone Radha Sullivan MD [...] [facility], [address], [place], [address], [place] tel:[phone] [facility] , Generic (chief complaint) Pain in joint involving multiple sitesLumbago 0 3 Nate Radha. [facility] [address], [place], [address], [place]. tel:[phone] Referring Provider: Radha Sanford, [facility] [address], [place], [address]. tel:[phone] [facility], [address], [place], [address], [place] tel:[phone] [facility] , No Information 3 Nate Garcia. [facility] [address], [place], [address], [place]. tel:[phone] Family History Family Member Type Diagnosis Age At Onset No Information Payers Payer name Insurance type Covered constitution party ID Authorangeliaa emerita(s) [facility] [id number] Social History Type Description Quantity Date Captured [...]
--- OUTSIDE RECORDS SUMMARY | 2023-11-16 09:06 | XMS_ITS | Clinical Summary ---
Author Organization [facility] Address [place], [place] [address] Care Team Providers Care Case Finishing Machine Adjuster Name Role Phone Gabino Aleman MD Primary Care Provider Allergies Active Allergy [...] Encounters Date Type Department Care Team Description 11/14/2023 1:00 PM CDT Ancillary Procedure [facility] [address] [place] [address] Arrived 09/27/2023 9:35 AM CDT - 09/27/2023 11:59 PM CDT Hospital Encounter [facility] [address] [place] [address] Payton Manzanares MD Cerebral aneurysm 09/27/2023 Travel [...] Smoking Tobacco: Former Cigarettes 1 27 1 2021 Smokeless Tobacco: Current Tobacco Cessation:Ready to [...] 59 kg (130 lb) 04/03/2023 7:30 AM ADMISSIONS CONSULTANT Height 157.5 cm (5' 2) 04/03/2023 7:30 AM ADMISSIONS CONSULTANT Body Mass Index 23.78 04/03/2023 7:30 AM ADMISSIONS CONSULTANT Plan of Treatment Health Maintenance Due Date Last Done Comments [...] Procedure Name Priority Date/Time Associated Diagnosis Comments ECHO STRESS EXERCISE WO CONTRAST W COLOR W LTD DOPPLER Routine 11/14/2023 1:50 PM CDT Chest pain MR ANGIO HEAD BRAIN WWO Routine 09/27/2023 10:40 AM CDT Cerebral aneurysm GYNECOLOGICAL PANEL Timed 01/07/2005 1 2:00 PM ADMISSIONS CONSULTANT from Last 3 Months or Most Recently Relevant to Health Maintenance Results * ECHO STRESS EXERCISE WO CONTRAST W COLOR W LTD DOPPLER (11/14/2023 1:50 PM CDT) LVEDD 4.2 cm EJECTION FRACTION 55 - 60% Anatomical Region Laterality Modality Ultrasound 11/14/2023 1:07 PM CDT Narrative 11/14/2023 2:08 PM CDT STRESS ECHOCARDIOGRAM ITZEL BENSON ?Accession#: ?? [id number] : ?1965 58 years Study Date: ?? 11/14/2023 1:07:42 PM Gender: F ? BP: ? 176/109 mmHg Height: 157.00 cm ? BSA: ?1.54 m? ? ? Weight: 55.00 kg ?Tech: ? MBF ?Referring MD: GABINO ALEMAN Site: ? [facility] Reading Location: Mobile OP Patient Location: Outpatient. Procedure: Stress Echo. Marcin stress echo. Indication for study: Chest Pain Cardiac Rhythm: Regular.Study quality: Good. Imaging limitations: This study was subject to imaging limitations due to a prominent lung artifact. Final Impressions: 1. Good exercise duration and workload. 2. Maximum stress test with 92.3% of age predicted maximum heart rate achieved. 3. During stress exam the patient developed shortness of breath. 4. Symptoms resolved in 5 minutes. 5. Post stress, normal left ventricular size, normal global systolic function with an estimated EF of 60 to 65%. 6. Negative stress echo for ischemia. 7. See separate report for EKG interpretation. Stress Data: ? HR ?Systolic Diastolic Time Duration Minutes Seconds Baseline 72 bpm ?176 ?109 mmHg ?9 :19 ? Peak ? 148 bpm ?? 190 ?90 mmHg Max Pred HR ?160 % of Max ? 92% Double Product [id number] Echo Findings:This is a negative stress echo test for ischemia. Post stress, normal left ventricular size, normal global systolic function with an estimated EF of 60 to 65%. LV regional wall motion abnormalities are not present post exercise. EKG:See separate report for EKG interpretation. Exam Protocol:The patient presents with no significant symptoms at baseline. The patient exercised 9 min 19 sec to stage IV according to the Marcin stress echo protocol. Test terminated due to shortness of breath. 13.5 METS were achieved. The patient achieved a heart rate of 148 bpm which is 92.3% of maximum predicted heart rate. Maximum systolic blood pressure was 190 [place] [address]. Maximum stress test with 92.3% of age predicted maximum heart rate achieved. The blood pressure response was normal. Exercise duration and workload were good. The patient developed shortness of breath during the stress exam. Symptoms resolved with rest. Symptoms resolved in 5 minutes. Low (less than 1% annual mortality rate) non invasive risk stratification. Chamber Sizes and Function Normal left ventricular size, normal global systolic function with an estimated EF of 55 - 60%. LV regional wall motion abnormalities are not present. Right ventricular cavity size is normal, global systolic RV function is normal. RV wall thickness is normal. Valves, RV Pressures and Diastolic Function The aortic valve is normal in structure and trileaflet, no stenosis and no regurgitation. The mitral valve is normal in structure, mild mitral regurgitation. The tricuspid valve is normal in structure. Tricuspid regurgitation is trace. Masses, Effusion, Shunts There is no pericardial effusion. MEASUREMENTS AND CALCULATIONS 2-D Measurements and LV Function: LVID (d) 4.2 cm LV FS% (2D) 31 % LVID (s) 2.9 cm HR ?72 bpm IVS (d) ??0.8 cm LVPW (d) 1.0 cm Asc Ao ?? 2.9 cm . This study was interpreted by an [facility] accredited facility. [facility]. ??Final ?? Procedure Note Kathy Dailey MD - 11/14/2023 STRESS ECHOCARDIOGRAM ITZEL BENSON : 1965 58 years Study Date: 11/14/2023 1:07:42 PM Gender: F BP: 176/109 mmHg Height: 157.00 cm BSA: 1.54 m? ? ? Weight: 55.00 kg Tech: [facility] Referring MD: GABINO ALEMAN Site: [facility] Reading Location: Mobile OP Patient Location: Outpatient. Procedure: Stress Echo. Marcin stress echo. Indication for study: Chest Pain Cardiac Rhythm: Regular.Study quality: Good. Imaging limitations: This study was subject to imaging limitations due toa prominent lung artifact. Final Impressions: 1. Good exercise duration and workload. 2. Maximum stress test with 92.3% of age predicted maximum heart rateachieved. 3. During stress exam the patient developed shortness of breath. 4. Symptoms resolved in 5 minutes. 5. Post stress, normal left ventricular size, normal global systolicfunction with an estimated EF of 60 to 65%. 6. Negative stress echo for ischemia. 7. See separate report for EKG interpretation. Stress Data: HR Systolic Diastolic Time Duration Minutes Seconds Baseline 72 bpm 176 109 mmHg 9 :19 Peak 148 bpm 190 90 mmHg Max Pred HR 160 % of Max 92% Double Product [id number] Echo Findings:This is a negative stress echo test for ischemia. Poststress, normal left ventricular size, normal global systolic function withan estimated EF of 60 to 65%. LV regional wall motion abnormalities arenot present post exercise. EKG:See separate report for EKG interpretation. Exam Protocol:The patient presents with no significant symptoms atbaseline. The patient exercised 9 min 19 sec to stage IV according to [facility] stress echo protocol. Test terminated due to shortness of breath.13.5 METS were achieved. The patient achieved a heart rate of 148 bpmwhich is 92.3% of maximum predicted heart rate. Maximum systolic bloodpressure was 190 [place] [address]. Maximumstress test with 92.3% of age predicted maximum heart rate achieved. Theblood pressure response was normal. Exercise duration and workload weregood. The patient developed shortness of breath during the stress exam.Symptoms resolved with rest. Symptoms resolved in 5 minutes. Low (lessthan 1% annual mortality rate) non invasive risk stratification. Chamber Sizes and Function Normal left ventricular size, normal global systolic function with anestimated EF of 55 - 60%. LV regional wall motion abnormalities are notpresent. Right ventricular cavity size is normal, global systolic RVfunction is normal. RV wall thickness is normal. Valves, RV Pressures and Diastolic Function The aortic valve is normal in structure and trileaflet, no stenosis and noregurgitation. The mitral valve is normal in structure, mild mitralregurgitation. The tricuspid valve is normal in structure. Tricuspidregurgitation is trace. Masses, Effusion, Shunts There is no pericardial effusion. MEASUREMENTS AND CALCULATIONS 2-D Measurements and LV Function: LVID (d) 4.2 cm LV FS% (2D) 31 % LVID (s) 2.9 cm HR 72 bpm IVS (d) 0.8 cm LVPW (d) 1.0 cm Asc Ao 2.9 cm . This study was interpreted by an [facility] accredited facility. [facility]. Final Gabino Aleman MD ECHO ORD * MR Angio Head w/wo Contrast (09/27/2023 [...] MR * GYNECOLOGICAL PANEL (01/07/2005 12:00 PM ADMISSIONS CONSULTANT) CYTOLOGY ??CYTOPATHOLOGY REPORT ??[employer] [address] [place] [address] ? Status: Final Report ?[id number] ?? CLINICAL INFORMATION ?Reason for Visit ?: [...] 01/07/05 ?? ACCESSIONED: 01/10/05 ?? SIGNED: 01/13/05 [facility] 01/07/2005 12:0 0 PM ADMISSIONS CONSULTANT 01/10/2005 8:37 AM ADMISSIONS CONSULTANT Sabrina Murphy MD PATHOLOGY/CYTOLO GY [facility] INTERNAL ZIP [id number] [place] [address] from Last 3 Months or Most Recently [...] Code Status Discussion: Reviewed Preferences Care Teams Case Finishing Machine Adjuster Relationship Specialty Start Date End Date Gabino Aleman MD [address] [place], [place] [id number] PCP - General 11/10/14
--- NOTE | 2023-11-16 10:45 | W.ANESCHARGE ---
Anesthesia Charges Start Date/Time Anesthesia Start Date: 11/16/23 Anesthesia Start Time: 10:00 Stop Date/Time Anesthesia Stop Date: 11/16/23 Anesthesia Stop Time: 10:37
--- NOTE | 2023-11-16 11:36 | W.ANESCHARGE ---
Anesthesia Charges Start Date/Time Anesthesia Start Date: 11/16/23 Anesthesia Start Time: 10:00 Stop Date/Time Anesthesia Stop Date: 11/16/23 Anesthesia Stop Time: 10:37
== END 2023-11-16 09:05 | disposition home or self-care (01) ==
LOC: OP CLINIC 09:04
PROVIDERS: PCP Internal Medicine; Visit Provider Surgery
DX: Z12.11 Encounter for screening for malignant neoplasm of colon (principal); D12.3 Benign neoplasm of transverse colon; K64.4 Residual hemorrhoidal skin tags; Z86.0100 Personal history of colon polyps, unspecified
CPT/HCPCS: 00811; 45385; 88305; J2704

== ENCOUNTER 2023-11-29 08:50 | Outpatient (CLI) | payer MEDICAID, SELFPAY ==
--- OUTSIDE RECORDS SUMMARY | 2023-11-29 08:53 | XMS_ITS | Referral Summary ---
Author Organization [facility] Address [address] [place] [address]. 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
--- OUTSIDE RECORDS SUMMARY | 2023-11-29 08:53 | XMS_ITS | Clinical Summary ---
Author Organization [facility] Address [place], [place] [address] Care Team Providers Care Pipe Cutter Name Role Phone Gabino Aleman MD Primary Care Provider [phone] Allergies Active Allergy Reactions Criticality Noted Date [...] Encounters Date Type Department Care Team Description 11/16/[address] [facility] [phone] Laureen Valencia MD 11/14/2023 1:00 PM CDT Ancillary Procedure [facility] & [address] [address] 09/27/2023 9:35 AM CDT - 09/27/2023 11:59 PM CDT Hospital Encounter [facility] [address] [place] [address] Payton Manzanares MD Cerebral aneurysm 09/27/2023 Travel [...] Smoking Tobacco: Former Cigarettes 1 27 1 9 - 2021 Smokeless Tobacco: Current Tobacco Cessation:Ready [...] 59 kg (130 lb) 04/03/2023 7:30 AM SENIOR VICE PRESIDENT & GENERAL COUNSEL Height 157.5 cm (5' 2) 04/03/2023 7:30 AM SENIOR VICE PRESIDENT & GENERAL COUNSEL Body Mass Index 23.78 04/03/2023 7:30 AM SENIOR VICE PRESIDENT & GENERAL COUNSEL Plan of Treatment Health Maintenance Due Date [...] Procedure Name Priority Date/Time Associated Diagnosis Comments LAB TRACKING EVENT Routine 11/16/2023 10 :25 AM CDT PATH TISSUE EXAM Routine 11/16/2023 10:2 5 AM CDT ECHO STRESS EXERCISE WO CONTRAST W COLOR W LTD DOPPLER Routine 11/14/2023 1:50 PM CDT Chest pain MR ANGIO HEAD BRAIN WWO Routine 09/27/2023 10:40 AM CDT Cerebral aneurysm GYNECOLOGICAL PANEL Timed 01/07/2005 1 2:00 PM SENIOR VICE PRESIDENT & GENERAL COUNSEL from Last 3 Months or Most Recently Relevant to Health Maintenance Results * LAB TRACKING EVENT (11/16/2023 10:25 AM CDT) Other (Other) Client Collect / Unknown 11/16/2023 10:25 AM CDT 11/16/2023 10:48 PM CDT Laureen Valencia MD LAB BILL ONLY [facility] [address] [place] [address], * PATH TISSUE EXAM (11/16/2023 10:25 AM CDT) Case Report Pathology Report ?Case: [id number] ? Authorizing Provider: ??Laureen Valencia MD ?Collected: ? 11/16/2023 1025 ? Ordering Location: ? [facility] ?Received: ?11/17/2023 0825 ? Pathologist: ? Timo Blanca MD ? Specimen: ?Hepatic Flexure Biopsy ? 11/20/2023 12:10 PM T [facility] Final Diagnosis A) COLON, HEPATIC FLEXURE, POLYPECTOMY: 1. Tubular adenoma 2. Negative for high grade dysplasia 3. Per the colonoscopy report: ?? a. Polyp size: 5 mm ?? b. Resection: Complete ?? c. Retrieval: Complete 11/20/2023 12:10 PM [facility] Clinical Information Screening colonoscopy. 11/20/2023 12:10 PM [facility] Gross Description A) Received in formalin are 3 emanuel mucosal fragments ranging from 2 mm to 4 mm in greatest dimension contaminated by fecal material, which are entirely submitted in one cassette. It is labeled with the patient's name and designated hepatic flexure biopsy. Blake Alvarez 11/17/2023 8:33 AM 11/20/2023 12:10 PM [facility] Microscopic Description The final diagnosis is based on microscopic examination of appropriate sections of all specimens. 11/20/2023 12:10 PM CDT [facility] Additional Information Interpreted at [facility], Central Laboratory - [address], [place] [address] 11/20/2023 12:10 PM CDT [facility] Other (Hepatic Flexure Biopsy) 11/16/2023 10:25 AM CDT 11/17/2023 8:25 AM CDT Laureen Valencia MD PATHOLOGY/CYTOLOGY [facility] [address] [place] [address], [place] * ECHO STRESS EXERCISE WO CONTRAST W COLOR W LTD DOPPLER (11/14/2023 1:50 PM CDT) LVEDD 4.2 cm EJECTION FRACTION 55 - 60% Anatomical Region Laterality Modality Ultrasound 11/14/2023 1:07 PM CDT Narrative 11/14/2023 2:08 PM CDT STRESS ECHOCARDIOGRAM ITZEL BENSON ?Accession#: ?? [id number] : ?1965 58 years Study Date: ?? 11/14/2023 1:07:42 PM Gender: F ? BP: ? 176/109 mmHg Height: 157.00 cm ? BSA: ?1.54 m? ? ? Weight: 55.00 kg ?Tech: ? MBF ?Referring MD: GABINO ALEMAN Site: ? [facility] Reading Location: Mobile OP Patient Location: Outpatient. [...] % of Max ? 92% Double Product [id number] Echo Findings:This is a negative stress echo [...] [place] [address]. Maximum stress test with 92.3% of age [...] . This study was interpreted by an [facility] accredited facility. CC: [facility] (med records) [facility]. ??Final ?? Procedure Note Kathy Dailey MD - 11/14/2023 STRESS ECHOCARDIOGRAM ITZEL BENSON : 1965 58 years Study Date: 11/14/2023 1:07:42 PM Gender: F BP: 176/109 mmHg Height: 157.00 cm BSA: 1.54 m? ? ? Weight: 55.00 kg Tech: [employer] Referring MD: GABINO ALEMAN Site: [facility] Reading Location: Mobile OP Patient [...] 160 % of Max 92% Double Product [id number] Echo Findings:This is a negative stress echo test for ischemia. Poststress, normal left ventricular size, normal global systolic function withan estimated EF of 60 to 65%. LV regional wall motion abnormalities arenot present post exercise. EKG:See separate report for EKG interpretation. Exam Protocol:The patient presents with no significant symptoms atbaseline. The patient exercised 9 min 19 sec to stage IV according to [facility] stress echo protocol. Test terminated due to shortness of breath.13.5 METS were achieved. The patient achieved a heart rate of 148 bpmwhich is 92.3% of maximum predicted heart rate. Maximum systolic bloodpressure was 190 [place] [address]. Maximumstress test with 92.3% of age predicted [...] . This study was interpreted by an [facility] accredited facility. CC: [facility] ([facility]. Final Gabino Aleman MD ECHO ORD * [...] MD @ 09/27/2023 7:18:58 PM (Electronically Signed) Dayanmaldonado Franki Manzanares MD MR * GYNECOLOGICAL PANEL (01/07/2005 12:00 PM SENIOR VICE PRESIDENT & GENERAL COUNSEL) CYTOLOGY ??CYTOPATHOLOGY REPORT ??[employer] ??[facility] [address] [address] ? Status: Final Report ?[id number] ?? CLINICAL INFORMATION ?Reason for Visit ?: [...] 01/13/05 [facility] 01/07/2005 12:0 0 PM SENIOR VICE PRESIDENT & GENERAL COUNSEL 01/10/2005 8:37 AM SENIOR VICE PRESIDENT & GENERAL COUNSEL Sabrina Murphy MD PATHOLOGY/CYTOLO GY [facility] INTERNAL ZIP [address] [place] [address] from Last 3 Months or Most Recently [...] Code Status Discussion: Reviewed Preferences Care Teams Pipe Cutter Relationship Specialty Start Date End Date Gabino Aleman MD [address] [place] [address] PCP - General 11/10/14
--- OUTSIDE RECORDS SUMMARY | 2023-11-29 08:53 | XMS_ITS | Continuity of Care Document ---
Author Organization [facility] Address [address] [place] [address] Phone Care Team Providers Care Denture Contour Wire Specialist Name Role Phone Radha Sullivan MD Unavailable [...] [facility], [address], [place], [address], [place] tel:[phone] [facility] , Generic (chief complaint) Pain in joint involving multiple sitesLumbago 0 3 Nate Radha. [facility] [address], [place], [address], [place]. tel:[phone] Referring Provider: Radha Sanford, [facility] [address], [place], [address]. tel:[phone] [facility], [address], [place], [address], [place] tel:[phone] [facility] , No Information 3 Nate Garcia. [facility] [address], [place], [address], [place]. tel:[phone] Family History Family Member Type Diagnosis Age At Onset No Information Payers Payer name Insurance type Covered democrat ID Authorangeliaa emerita(s) [facility] [id number] Social History Type Description Quantity Date Captured [...]
--- OUTSIDE RECORDS SUMMARY | 2023-11-29 08:53 | XMS_ITS | Clinical Summary ---
Author Organization [facility] Address [address] [place] [address]. 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
--- OUTSIDE RECORDS SUMMARY | 2023-11-29 08:53 | XMS_ITS | Continuity of Care Document ---
Author Organization [facility] Address [address] [place] [address] Phone Care Team Providers Care Music Theory Professor Name Role Phone Unavailable Unavailable Unavailable Allergies, Adverse Reactions, Alerts Substance Reaction Status Criticality BUPROPION HCL Active No Information ibuprofen Active No Information Penicillins Active No Information Medications Medication Instructions Dosage Effective Dates (start - stop) Status Comments COMBIPATCH (unknown strength) Not Available - Active Procedures Procedure Date Office/Outpatient Visit,[facility] 2011 Advance Directives Directive Yes / No Effective Date File Name No Information Encounters Encounter Description Practice Location Reason(s) For Visit Diagnoses Date Provider Providers Copied on Encounter [facility], [address] [place] [address], [place], [address], [place] tel:[phone] [facility] No Information 3 No Information Office/Outpa tient Visit,[facility], [facility], [address] [place], [place] [address], [place], [address], [place] tel:[phone] [facility] - [place] URINARY PROBLEMS [facility] 2 Julio Charanjit. [facility], [address], [address], [place], [place], [address], [place]. tel:[phone] [facility] [address], [address]. tel:[phone] Family History Family Member Type Diagnosis Age At Onset No Information Payers Payer name Insurance type Covered republican ID Authoriza tion(s) [facility] [id number] [facility] [id number] Social History Type Description Quantity Date Captured [...]
--- NOTE | 2023-11-29 09:15 | CRLHL7_ITS ---
For Patients: As a result of the Century Cures Act, medical imaging exams and procedure reports are released immediately into your electronic medical record. You may view this report before your referring provider. If you have questions, please contact your health care provider. INDICATION: Low back pain. COMPARISON: 08/03/2016. CT 11/09/2023 Technique Sagittal T1, T2, and STIR sequences. Axial T1 and T2 weighted sequences. FINDINGS: Transitional lumbar anatomy. Lumbosacral segment is designated S1 and is partially lumbarized. Rudimentary S1-2 disc space. Five lumbar type vertebra are assumed. Thoracolumbar curve convex the right and lower lumbar curve convex the left. In sagittal plane, normal vertebral body alignment. No fractures. No vertebral body loss of height. No ligamentous injury. No suspicious osseous lesions. Normal conus terminates at L1-2. T12-L1 L1-2 L2-3: No spinal canal neural foraminal narrowing. L3-4: No spinal canal narrowing. Facet arthropathy results in mild narrowing of left neural foramen. No narrowing of the right neural foramen. L4-5: Trace grade 1 anterolisthesis. Posterior disc bulge. No narrowing of spinal canal. Mild narrowing of the right neural foramen. No narrowing of the left neural foramen. Mild facet arthropathy. L5-S1: Disc degeneration and diffuse disc bulge eccentric to the left. No narrowing of spinal canal. No impingement of the traversing S1 nerve roots. Mild right and moderate left neural foraminal narrowing. Mild facet arthropathy. Degenerative changes of the SI joints. IMPRESSION: 1. Transitional lumbar anatomy. Lumbosacral segment is designated S1 and is partially lumbarized. Five lumbar type vertebra are assumed and confirmed on the CT from 11/09/2023. 2. Thoracolumbar curve convex to the right lower lumbar curve convex the left. 3. Otherwise normal alignment. No fractures 4. Lumbar spondylosis. 5. At L3-4, mild narrowing of the left neural foramen 6. At L4-5, mild narrowing of the right neural foramen. 7. At L5-S1, mild right and moderate left neural foraminal narrowing. Dictated by Leo Reynoso MD @ 11/30/2023 3:35:40 PM (Electronically Signed)
== END 2023-11-29 08:51 | disposition home or self-care (01) ==
PROVIDERS: PCP Internal Medicine; Visit Provider Internal Medicine
DX: M54.50 Low back pain, unspecified (principal); M43.06 Spondylolysis, lumbar region; M51.26 Other intervertebral disc displacement, lumbar region; M51.27 Other intervertebral disc displacement, lumbosacral region
CPT/HCPCS: 72148

== ENCOUNTER 2024-03-26 08:27 | Outpatient (CLI) | payer BC, SELFPAY ==
[2024-03-30 05:54] LABS: HPV Source Cervix; HPV, High Risk by TMA Detected
[2024-04-02 15:11] LABS: HPV Genotype 16 by TMA Not Detected; HPV Genotype 18/45 by TMA Not Detected; HPVG Source Cervix
[2024-04-04 14:09] LABS: Pap Test Reviewed by Path Done
== END 2024-03-26 08:28 | disposition home or self-care (01) ==
PROVIDERS: PCP Internal Medicine; Visit Provider Physician Assistant
DX: R39.9 Unspecified symptoms and signs involving the genitourinary system (principal); Z12.4 Encounter for screening for malignant neoplasm of cervix; Z11.51 Encounter for screening for human papillomavirus (HPV)
CPT/HCPCS: 87086; 87624; 87625; 88141; 88142

== ENCOUNTER 2024-06-03 09:15 | Outpatient (CLI) | payer BC, SELFPAY | END 2024-06-03 09:16 | disposition home or self-care (01) | LOC: NFLDREF 06-04 23:33 | PROVIDERS: PCP Internal Medicine; Referring Provider Internal Medicine; Visit Provider Internal Medicine | DX: E78.5 Hyperlipidemia, unspecified (principal); I10 Essential (primary) hypertension; J44.9 Chronic obstructive pulmonary disease, unspecified; Z13.9 Encounter for screening, unspecified | CPT/HCPCS: 80053; 80061 ==

== ENCOUNTER 2024-07-08 09:43 | Outpatient (CLI) | payer BC, SELFPAY ==
--- NOTE | 2024-07-08 09:45 | CRLHL7_ITS ---
For Patients: As a result of the Century Cures Act, medical imaging exams and procedure reports are released immediately into your electronic medical record. You may view this report before your referring provider. If you have questions, please contact your health care provider. INDICATION: BILATERAL SCREENING MAMMOGRAM, ASYMPTOMATIC 59 Y/O FEMALE COMPARISON: 09/19/2013 TECHNIQUE: Digital mammogram in CC and MLO projections including computer-aided detection (CAD) and tomosynthesis. BREAST COMPOSITION: The breasts are almost entirely fatty. FINDINGS: No suspicious findings. ASSESSMENT: BI-RADS 1 Negative RECOMMENDATION: Annual screening mammogram. A lay language report of this examination will be provided to the patient. Dictated by: Geovany Elizabeth MD @ 07/15/2024 13:32:15 (Electronically Signed)
== END 2024-07-08 09:44 | disposition home or self-care (01) ==
PROVIDERS: PCP Internal Medicine; Visit Provider Internal Medicine
DX: Z12.31 Encounter for screening mammogram for malignant neoplasm of breast (principal)
CPT/HCPCS: 77063; 77067

== ENCOUNTER 2024-09-04 08:51 | Outpatient (CLI) | payer BC, SELFPAY ==
--- NOTE | 2024-09-04 09:00 | CRLHL7_ITS ---
For Patients: As a result of the Century Cures Act, medical imaging exams and procedure reports are released immediately into your electronic medical record. You may view this report before your referring provider. If you have questions, please contact your health care provider. INDICATION: Lung cancer screening. Smoking history. TECHNIQUE: CT chest low dose without contrast. COMPARISON: None. FINDINGS: Pulmonary nodules: Left upper lobe calcified granuloma measuring 5 mm. Left lower lobe solid nodule measuring 3 mm (). Lungs and pleural spaces: Mild biapical centrilobular emphysema. No pleural effusion or pneumothorax. Heart and vasculature: Heart size is normal. Thoracic aorta and pulmonary artery are normal in caliber. Lymph nodes and mediastinum: No lymphadenopathy. Partially calcified left hilar and mediastinal lymph nodes are likely sequela of prior granulomatous disease. Chest wall: Unremarkable. Upper abdomen: Scattered punctate calcifications throughout the spleen. Bones: Unremarkable for age. IMPRESSION: Subcentimeter calcified and noncalcified pulmonary nodules are likely benign Lung-RADS Category 2: BENIGN. Continue annual screening, if eligible, with LDCT in 12 months. Please note that all CT scans at this facility use dose modulation, iterative reconstruction, and/or weight-based dosing when appropriate to reduce radiation dose to as low as reasonably achievable. Dictated by Margareth Patel MD @ 09/09/2024 8:54:05 AM (Electronically Signed)
== END 2024-09-04 08:52 | disposition home or self-care (01) ==
LOC: CT 08:51
PROVIDERS: PCP Internal Medicine; Visit Provider Internal Medicine
DX: Z12.2 Encounter for screening for malignant neoplasm of respiratory organs (principal); R91.8 Other nonspecific abnormal finding of lung field; Z87.891 Personal history of nicotine dependence
CPT/HCPCS: 71271

== ENCOUNTER 2024-10-02 12:43 | Outpatient (CLI) | payer BC, SELFPAY ==
--- NOTE | 2024-10-02 13:00 | MR_ITS ---
Patient: VENITA BENSON Facility:?[facility] Patient ID:?[id number] Site Patient ID:?[id number]. Site :?[id number] Study:?MRI-Head Angio wo-10/02/2024 2:00:22 PM Ordering Physician:Melinda Cain Final Report: EXAMINATION: MRA HEAD WITHOUT CONTRAST DATE: 10/02/2024 HISTORY: Patient with known brain aneurysms. TECHNIQUE: 3D TOF MRA of the head was performed. COMPARISON: MRA 09/27/2023. 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 There are no new aneurysms. The rest of the intracranial vasculature is unremarkable. IMPRESSION: 1. 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 2. 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 Confirmation of this finding with a CTA head will be made. Payton Manzanares M.D. Neurointerventional Radiologist [facility] [place] Pager: Office/Referrals: [facility]: [email or web address] Dictated by: Payton Manzanares MD @ 10/02/2024 14:20:57 Signed by:?Payton Manzanares MD @10/02/2024 2:20:57 PM (Electronic Signature)
== END 2024-10-02 12:44 | disposition home or self-care (01) ==
LOC: MRI 12:44
PROVIDERS: PCP Internal Medicine
DX: I67.1 Cerebral aneurysm, nonruptured (principal)
CPT/HCPCS: 70544

== ENCOUNTER 2024-10-02 13:00 | Outpatient (CLI) | payer BC, SELFPAY ==
--- NOTE | 2024-10-02 13:45 | CRLHL7_ITS ---
For Patients: As a result of the Century Cures Act, medical imaging exams and procedure reports are released immediately into your electronic medical record. You may view this report before your referring provider. If you have questions, please contact your health care provider. INDICATION: Radiculopathy. TECHNIQUE: Lumbar spine MRI was performed without the administration of intravenous contrast. COMPARISON: : Lumbar spine MRI 11/29/2023, abdomen and pelvis CT 11/09/2023 FINDINGS: Lumbosacral transitional anatomy reflecting partial lumbarization of the S1 vertebrae. For the purpose of this report, and to remain consistent with prior reports, the partial lumbarized S1 vertebrae will be considered S1. Mild/moderate levoconvex curvature of the thoracolumbar spine. No suspicious marrow replacement. The vertebral body heights are maintained. Multilevel degenerative disc changes including disc space height loss with early endplate changes. Multilevel moderate facet joint hypertrophy in the lower lumbar spine. The visualized spinal cord and cauda equina nerve roots are within normal limits. Significant findings by level: T12-L1: No significant spinal canal or neural foraminal narrowing. L1-L2: No significant spinal canal or neural foraminal narrowing. L2-L3: No significant spinal canal or neural foraminal narrowing. L3-L4: Mild neural foraminal stenosis bilaterally due to disc space height loss and facet joint hypertrophy. Disc bulge effaces the thecal sac without significant spinal canal narrowing. L4-L5: Mild right neural foraminal stenosis due to disc space height loss and facet joint hypertrophy. Disc bulge effaces the thecal sac without significant spinal canal narrowing. L5-S1: Moderate neural foraminal stenosis bilaterally due to disc space height loss, disc bulge, and facet joint hypertrophy. Disc bulge effaces the thecal sac without spinal canal stenosis or impingement of the descending S1 nerve roots. The visualized soft tissues are within normal limits. IMPRESSION: 1. Lumbosacral transitional anatomy reflecting partial lumbarization of the S1 vertebrae. For the purpose of this report, and to remain consistent with prior reports, the partial lumbarized S1 vertebrae will be considered S1. 2. Degenerative changes including moderate neuroforaminal stenosis bilaterally at L5-S1 and other milder changes as detailed above. No significant spinal canal stenosis or impingement of descending nerve roots. Dictated by Michael Pemberton MD @ 10/02/2024 4:26:51 PM (Electronically Signed)
== END 2024-10-02 13:01 | disposition home or self-care (01) ==
LOC: MRI 13:04
PROVIDERS: PCP Internal Medicine; Visit Provider Internal Medicine
DX: M54.16 Radiculopathy, lumbar region (principal); M48.07 Spinal stenosis, lumbosacral region
CPT/HCPCS: 72148

== ENCOUNTER 2024-12-24 06:54 | Outpatient (CLI) | payer BC, SELFPAY | END 2024-12-24 06:55 | disposition home or self-care (01) | LOC: INJ CL 06:55 | PROVIDERS: PCP Internal Medicine; Visit Provider Family Medicine | DX: M54.16 Radiculopathy, lumbar region (principal); M51.369 Other intervertebral disc degeneration, lumbar region without mention of lumbar back pain or lower extremity pain | CPT/HCPCS: 64483; J1100; Q9966 ==

== ENCOUNTER 2025-01-27 17:09 | Outpatient (CLI) | payer OTHER, BC, SELFPAY ==
--- NOTE | 2025-01-27 17:30 | CRLHL7_ITS ---
For Patients: As a result of the Century Cures Act, medical imaging exams and procedure reports are released immediately into your electronic medical record. You may view this report before your referring provider. If you have questions, please contact your health care provider. INDICATION: Spinal stenosis. Neurogenic claudication. TECHNIQUE : Lumbar spine MRI without contrast. COMPARISON: Lumbar spine MRI from 10/02/2024. FINDINGS : A transitional segment at the lumbosacral junction with right transverse process/sacral ala integration. Designated S1. accentuated lumbar lordosis. Moderate upper lumbar dextroconvex curvature. No recent compression fracture or marrow replacing process. Lower cord/conus signal is normal. The conus terminates at a normal location. No intradural lesion. No extraspinal soft tissue abnormalities. Discs/Endplates: Mild disc height loss and disc desiccation L4-5/L5-S1 on the right. Findings at individual levels as follows: T11-12: Shallow central protrusion contacts the ventral cord. Mild spinal canal stenosis. Neural foramina not completely visualized. T12-L1: No spinal canal or neural foraminal stenosis. L1-2: Trace retrolisthesis. Mild disc bulge. Bilateral facet arthrosis. Mild left neural foraminal stenosis. No right neural foraminal stenosis or spinal canal stenosis. L2-3: No spinal canal or neural foraminal stenosis. L3-4: No spinal canal or neural foraminal stenosis. L4-5: Trace anterolisthesis. Mild disc bulge. Bilateral facet arthrosis. Dauv-hv-rkhjewgt right neural foraminal stenosis. No left neural foraminal stenosis or spinal canal stenosis. L5-S1: Mild disc bulge. A superimposed small 4 mm left intraforaminal protrusion which slightly compresses the exiting left L5 nerve root. Bilateral low-grade facet arthrosis. Mild bilateral neural foraminal stenosis. No spinal canal stenosis. S1-2: No spinal canal or neural foraminal stenosis. Imaged SI joints: Within normal limits. Imaged sacrum: Within normal limits. IMPRESSION: 1. No acute fracture or marrow replacing process. 2. Transitional segment designated S1. 3. At L4-5, [id number] right neural foraminal stenosis. 4. At L5-S1, a small left intraforaminal protrusion which slightly compresses the exiting left L5 nerve root. Stable. Dictated by Ernst Suárez MD @ 01/29/2025 11:02:10 AM (Electronically Signed)
--- NOTE | 2025-01-27 18:15 | CRLHL7_ITS ---
For Patients: As a result of the Century Cures Act, medical imaging exams and procedure reports are released immediately into your electronic medical record. You may view this report before your referring provider. If you have questions, please contact your health care provider. INDICATION : Cervical spinal stenosis. TECHNIQUE : Cervical spine MRI without contrast. COMPARISON: COMPARISONNone. FINDINGS: Normal cervical lordotic curve. No recent compression fracture or marrow replacing process. Posterior fossa structures are normal. Cervical cord signal is normal. No extraspinal soft tissue abnormalities. Discs/Endplates: Scattered mild disc degeneration. Findings at individual levels as follows: Craniocervical junction: Alignment is maintained. C2-C3: No spinal canal or neural foraminal stenosis. C3-C4: Shallow disc osteophyte complex. Minimal uncovertebral and facet arthrosis. Mild bilateral foraminal stenosis. No spinal canal stenosis. C4-C5: A right dorsal lateral protrusion contacts the ventral cord. Mild right-sided spinal canal stenosis. Right uncovertebral arthrosis with mild to moderate right neural foraminal stenosis. No left neural foraminal stenosis. C5-C6: A shallow central protrusion minimally flattens the ventral cord. Mild spinal canal stenosis. Bilateral low-grade facet arthrosis. No significant neural foraminal stenosis. C6-C7: Shallow disc osteophyte complex without spinal canal stenosis. Minimal uncovertebral arthrosis with mild left and minimal right neural foraminal stenosis. C7-T1: Trace anterolisthesis. Left facet arthrosis. Mild left neural foraminal stenosis. No right neuroforaminal stenosis or spinal canal stenosis. Mild STIR hyperintensity left facet bone marrow, compatible with active degenerative synovitis. T1-2: No spinal canal or neural foraminal stenosis. IMPRESSION: 1. No acute fracture or marrow replacing process. 2. Scattered cervical spondylosis without high-grade spinal canal/neural foraminal stenosis. 3. At C4-5, nlyl-gi-pypkxbet right neural foraminal stenosis. 4. At C5-6, a shallow central protrusion minimally flattens the ventral cord. Overall mild spinal canal stenosis. 5. At C7-T1, mild active degenerative synovitis left-sided facet joint. Dictated by Ernst Suárez MD @ 01/29/2025 10:01:24 AM (Electronically Signed)
--- NOTE | 2025-01-27 18:15 | CRLHL7_ITS ---
For Patients: As a result of the Century Cures Act, medical imaging exams and procedure reports are released immediately into your electronic medical record. You may view this report before your referring provider. If you have questions, please contact your health care provider. INDICATION: Thoracic spinal stenosis. TECHNIQUE: Thoracic spine MRI without contrast. COMPARISON: None. FINDINGS: Normal alignment and curvature of the thoracic spine. No acute fracture or aggressive marrow lesion. No cord signal abnormality. No intradural lesion. No significant abnormalities of the mediastinal, paraspinous or retroperitoneal soft tissues. Disc/endplates: T11-12 mild disc height loss disc desiccation. The remaining discs are within normal limits. Trace type 1 reactive marrow edema T11-12 endplates. Spinal canal/neural foramina: T8-9: Right dorsal lateral protrusion which abuts the ventral cord. T10-11: Mild disc osteophyte complex. Bilateral facet arthrosis. No spinal canal or neural foraminal stenosis. T11-12: Mild disc osteophyte complex. A superimposed central protrusion. Bilateral facet arthrosis. Mild spinal canal stenosis. Mild right neural foraminal stenosis. No left neuroforaminal stenosis. IMPRESSION: 1. No acute fracture or marrow replacing process. 2. Scattered minimal thoracic spondylosis without high-grade spinal canal/neural foraminal stenosis or compression of neural structures. 3. Cord signal is normal. No intradural pathology. Dictated by Ernst Suárez MD @ 01/29/2025 10:08:07 AM (Electronically Signed)
== END 2025-01-27 17:10 | disposition home or self-care (01) ==
PROVIDERS: PCP Internal Medicine; Visit Provider Orthopaedic Surgery Orthopaedic Surgery of the Spine
DX: M48.02 Spinal stenosis, cervical region (principal); M47.892 Other spondylosis, cervical region; M50.221 Other cervical disc displacement at C4-C5 level; M50.222 Other cervical disc displacement at C5-C6 level; M48.062 Spinal stenosis, lumbar region with neurogenic claudication; M47.894 Other spondylosis, thoracic region; M48.061 Spinal stenosis, lumbar region without neurogenic claudication; M51.27 Other intervertebral disc displacement, lumbosacral region; M48.04 Spinal stenosis, thoracic region
CPT/HCPCS: 72141; 72146; 72148